=== PATIENT | female | born 1965 | race Caucasian/White ===

== ENCOUNTER 2016-08-01 00:30 | Emergency (ER) | payer SELFPAY | END 2016-08-01 02:55 | disposition T | LOC: EDMED 00:30 | PROC: 0HCCXZZ Extirpation of Matter from Left Upper Arm Skin, External Approach (ICD-10-PCS; principal; 2016-08-01) | DX: S50.852A Superficial foreign body of left forearm, initial encounter (principal); Z23 Encounter for immunization; Z88.8 Allergy status to other drugs, medicaments and biological substances; F17.210 Nicotine dependence, cigarettes, uncomplicated; W45.8XXA Other foreign body or object entering through skin, initial encounter ==